=== PATIENT | female | born 1980 | race American Indian/Alaskan Native ===

== ENCOUNTER 2017-10-16 20:16 | Emergency (ER) | payer OTHER, BC ==
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
[2017-10-17] MEDS ORDERED: TYLENOL ONE (01:55)
[2017-10-17] MEDS ORDERED: TYLENOL PO ONE (02:01)
[2017-10-17] MEDS ORDERED: MOTRIN PO ONE (02:59)
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
[2017-10-17 04:14] VITALS: BP 140/82
== END 2017-10-17 04:15 | disposition home or self-care (01) ==
LOC: ED 20:16
DX: S13.4XXA Sprain of ligaments of cervical spine, initial encounter (principal); R07.81 Pleurodynia; V49.49XA Driver injured in collision with other motor vehicles in traffic accident, initial encounter; X58.XXXA Exposure to other specified factors, initial encounter; Y93.89 Activity, other specified; Y92.89 Other specified places as the place of occurrence of the external cause; Y99.8 Other external cause status
CPT/HCPCS: 36415; 71046; 72040; 84703; 93005; 93010